=== PATIENT | male | born 1945 | race Caucasian/White ===

== ENCOUNTER 2023-02-06 19:59 | Outpatient (CLI) | payer MEDICARE | END 2023-02-06 23:59 | disposition critical access hospital (66) | LOC: EMS 19:59 | DX: R55 Syncope and collapse (principal) | CPT/HCPCS: A0425; A0429 ==

== ENCOUNTER 2023-02-06 20:34 | Emergency (ER) | payer MEDICARE, OTHER ==
[2023-02-06] MEDS ORDERED: SODIUM CHLORIDE 0.9% 1,000 ML IV STA (20:45)
--- NOTE | 2023-02-06 20:50 | ED Physician Documentation ---
History of Present Illness - Stated complaint Stated Complaint: SYNCOPAL EPISODE - Chief complaint Chief Complaint: General - Additonal information Additional information: 77-year-old male presents to the emergency department for evaluation of a syncopal episode. Reportedly he was at a friend's house had drank a fairly strong amelie as well as partaken in some cannabis cookies that were homemade. While eating dinner he began to feel very lightheaded and as he reported high. He was about to announce that he felt it was not appropriate for him to drive home when he fainted. While on the ground EMS reports that his attempted to do CPR but during this process he was moaning and flailing about. Its not clear whether she ever checked for a pulse. By the time paramedics had arrived he was awake. Initially for EMS he was hypotensive 85/60. He had a blood sugar of about 130 in route to the emergency department he was administered about 500 mL of saline. On arrival here is now normotensive without tachycardia. Past medical history is most significant for hypertension. Patient denies any history of known myocardial infarction or strokes. Patient denies chest pain shortness of air or any symptoms at this time. Meds: Enalapril, losartan, metformin, Flomax Review of Systems Constitutional: reports: Reviewed and negative Cardiac: reports: Reviewed and negative Respiratory: reports: Reviewed and negative GI: reports: Reviewed and negative Skin: reports: Reviewed and negative Musculoskeletal: reports: Reviewed and negative Neurologic: reports: Syncope Psychiatric: reports: Reviewed and negative PD PAST MEDICAL HISTORY - Past Medical History Cardiovascular: Hypertension, High cholesterol, Other Respiratory: None Endocrine/Autoimmune: None GI: GERD : Frequency Psych: Post traumatic stress disorder Musculoskeletal: Other - Past Surgical History Past Surgical History: Yes General: Other HEENT: Tonsil/Adenoidectomy - Present Medications Home Medications: Ambulatory Orders Medication Instructions Recorded Confirmed Ascorbic Acid [Vitamin C] 1 tab PO DAILY 05/14/15 05/14/15 Calcium Carbonate [Calcium] 500 mg PO DAILY 05/14/15 05/14/15 Enalapril Maleate [Vasotec] 10 mg PO QPM 05/14/15 05/14/15 Lovastatin 40 mg PO QPM 05/14/15 05/14/15 Metoprolol Tartrate 50 mg PO QPM 05/14/15 05/14/15 [place]-3/Dha/Epa/Fish Oil [Fish Oil 1 tab PO DAILY 05/14/15 05/14/15 1,000 mg Softgel] Vitamin E 1 tab PO DAILY 05/14/15 05/14/15 - Allergies Allergies/Adverse Reactions: Allergies Allergy/AdvReac Type Severity Reaction Status Date / Time No Known Drug Allergies Allergy Verified 05/14/15 23:49 - Social History Does the pt smoke?: No Smoking Status: Never smoker Does the pt drink ETOH?: No Does the pt have substance abuse?: No - Immunizations Immunizations are current?: Yes - POLST Patient has POLST: No PD ED PE NORMAL - General General: Alert and oriented X 3, No acute distress - HEENT HEENT: Atraumatic, Moist mucous membranes - Neck Neck: Supple, no meningeal sign - Cardiac Cardiac: RRR, No murmur, Strong equal pulses - Respiratory Respiratory: No respiratory distress, Clear bilaterally - Abdomen Abdomen: Normal bowel sounds, Soft - Derm Derm: Warm and dry - Extremities Extremities: No deformity - Neuro Neuro: Alert and oriented X 3, test lead application testing 2-12 intact, No motor deficit, Normal speech Eye Opening: Spontaneous Motor: Obeys Commands Verbal: Oriented GCS Score: 15 Results - Vitals Vitals: Vital Signs - 24 hr 02/06/23 02/06/23 20:39 20:48 Temperature 36.8 C Heart Rate 71 Heart Rate [ 65 Sitting] Heart Rate [ 74 Standing] Heart Rate [ 68 Supine] Respiratory 18 Rate Blood Pressure 129/89 H Blood Pressure 113/65 [Sitting] Blood Pressure 121/75 [Standing] Blood Pressure 110/65 [Supine] O2 Saturation 99 Oxygen O2 Source Room air - EKG (time done) 2034 EKG releavant findings:: EKG personally interpreted by author of this note. Relevant findings are: Rate: Rate (enter#) (54) Rhythm: NSR [place]: Normal Intervals: Normal AL. No: Prolonged QT QRS: Normal Ischemia: Normal ST segments Compare to prior EKG: Unchanged from prior EKG Computer interpretation: Agree with computer - Labs Labs: Laboratory Tests 02/06/23 02/06/23 02/06/23 21:00 21:00 21:00 WBC 8.4 RBC 4.35 L Hgb 13.0 L Hct 40.2 L MCV 92.4 MCH 29.9 MCHC 32.3 RDW 13.3 Plt Count 214 MPV 9.8 Neut # (Auto) 6.2 Lymph # (Auto) 1.4 L [place] # (Auto) 0.6 Eos # (Auto) 0.2 Baso # (Auto) 0.0 Absolute Nucleated RBC 0.00 Nucleated RBC % 0.0 Sodium 142 Potassium 4.0 Chloride 107 Carbon Dioxide 26 Anion Gap 9.0 BUN 28 H Creatinine 1.4 H Estimated GFR (MDRD) 49 L Glucose 115 H Calcium 8.8 Total Bilirubin 0.6 AST 18 ALT 16 Alkaline Phosphatase 41 L Troponin I High Sens 10.5 Total Protein 6.4 L Albumin 3.7 Globulin 2.7 Albumin/Globulin Ratio 1.4 Lipase 32 Ethyl Alcohol < 5.0 - Rads (name of study) cxr Relevant Findings:: Final report received (No acute cardiopulmonary process) PD Medical Decision Making - ED course Complexity details: reviewed results, re-evaluated patient, considered differential, d/w patient ED course: 77-year-old male was brought into the emergency department by EMS after a fainting episode. He had been at dinner with friends and earlier in the day had consumed a amelie which he rarely does. He had also eaten a cannabis infused food of which the strength is not known. While eating dinner he began to feel excessively high and then fainted. His attempted CPR on him though it does not sound as though he ever lost a pulse. During her CPR attempts he was moaning and flailing about. For EMS he was initially hypotensive but after some IV fluids and in route to the emergency department arrived here alert normotensive without tachycardia or fever. His syncope work-up included an EKG which per my interpretation shows no acute ischemic findings. In comparison to the most recent one 8 years ago it is essentially unchanged. We did obtain a chest x-ray which showed no findings of pneumonia, pneumothorax rib fracture pleural effusion or cardiomegaly. I did obtain CBC, electrolytes, troponin and alcohol level. The high-sensitivity troponin is not elevated. He does have mildly elevated BUN and creatinine though in comparison to recent labs is essentially unchanged. As such I suspect he has some mild chronic kidney disease. We did obtain orthostatics here in the emergency department which were also negative. While here in the ER he has received a liter of crystalloid. I discussed with the patient that the most likely etiology of his symptoms today was alcohol use coupled with intoxication due to cannabis. He is in agreement. He has no chest pain or shortness of air. I did discuss with him however the necessity of obtaining an echocardiogram urgently as an outpatient to rule out any structural defects within the heart that it could have contributed to today's symptoms. He will call his PCP to make these arrangements. We also discussed the usual emergent return precautions for worsening symptoms Departure - Departure Disposition: 01 Home, Self Care Clinical Impression: Syncope and collapse Condition: Stable Record reviewed to determine appropriate education?: Yes Comments: Esteban you came to the emergency department tonight because you had a fainting episode while eating dinner. Today you have consumed some cannabis containing food as well as drink a fairly strong amelie. While in the emergency department we did obtain a chest x-ray that was normal. It did not show any findings of pneumothorax, punctured lung, pneumonia or rib fractures. We obtained a CBC that was normal and did not show findings of anemia. Your electrolytes as well as a troponin a marker of whether or not you have had a heart attack were also normal. We did check your vital signs in different positions and did not find any worrisome variation. Important you do discuss this ED visit with your primary care doctor. At a minimum you should be referred for an outpatient echocardiogram to make sure that there is no structural problems with your heart that could have contributed today's symptoms. However common things being common, cannabis and alcohol use most likely contributed to the fainting today. Please return to emergency department if you have any further fainting episodes, develop chest pain or Shortness of air
[2023-02-06 21:05] LABS: BASOPHILS % (AUTO) 0.4 %; EOSINOPHILS # (AUTO) 0.2 10^3/uL (0.0-0.7); EOSINOPHILS % (AUTO) 1.8 %; HCT - HEMATOCRIT 40.2 % (42.0-52.0); LYMPHOCYTES # (AUTO) 1.4 10^3/uL (1.5-3.5); LYMPHOCYTES % (AUTO) 16.5 %; MEAN CORPUSCULAR HEMOGLOBIN 29.9 pg (27.0-31.0); MEAN CORPUSCULAR HGB CONC 32.3 g/dL (32.0-36.0); MEAN CORPUSCULAR VOLUME 92.4 fL (80.0-94.0); MEAN PLATELET VOLUME 9.8 fL (7.4-11.4); MONOCYTES # (AUTO) 0.6 10^3/uL (0.0-1.0); MONOCYTES % (AUTO) 6.9 %; NEUTROPHILS # (AUTO) 6.2 10^3/uL (1.5-6.6); NEUTROPHILS % (AUTO) 74.2 %; PLT - PLATELET COUNT 214 10^3/uL (130-450); RED BLOOD COUNT 4.35 10^6/uL (4.70-6.10); RED CELL DISTRIBUTION WIDTH 13.3 % (12.0-15.0); WHITE BLOOD COUNT 8.4 x10^3/uL (4.8-10.8)
--- NOTE | 2023-02-06 21:07 | XRAY Report ---
PROCEDURE: Chest 1 View X-Ray INDICATIONS: Chest Pain TECHNIQUE: One view of the chest was acquired. COMPARISON: None. FINDINGS: Evaluation slightly limited by patient rotation. Surgical changes and devices: None. Lungs and pleura: No pleural effusions or pneumothorax. Lungs are clear. Mediastinum: Mediastinal contours appear normal. Heart size is normal. Bones and chest wall: No suspicious bony lesions. Overlying soft tissues appear unremarkable. IMPRESSION: No acute cardiopulmonary disease. Reviewed by: Lucas Najera MD on 02/06/2023 9:05 PM PDT Approved by: Lucas Najera MD on 02/06/2023 9:05 PM PDT Station ID: [id number]
[2023-02-06 21:20] LABS: ALBUMIN 3.7 g/dL (3.2-5.5); ALBUMIN/GLOBULIN RATIO 1.4 (1.0-2.2); ALKALINE PHOSPHATASE 41 IU/L (42-121); ALT ALANINE AMINOTRANSFERASE 16 IU/L (10-60); AST ASPARTATE AMINOTRANSFERASE 18 IU/L (10-42); BILIRUBIN,TOTAL 0.6 mg/dL (0.2-1.0); BUN - BLOOD UREA NITROGEN 28 mg/dL (6-20); CALCIUM 8.8 mg/dL (8.5-10.3); CARBON DIOXIDE - CO2 26 mmol/L (21-32); CHLORIDE 107 mmol/L (101-111); CREATININE 1.4 mg/dL (0.6-1.2); ETOH - ETHANOL < 5.0 mg/dL; GFR - MDRD 49 (>89); GLUCOSE 115 mg/dL (70-100); LIPASE 32 U/L (22-51); SODIUM 142 mmol/L (135-145); TOTAL PROTEIN 6.4 g/dL (6.7-8.2)
[2023-02-06 21:39] VITALS: BP 118/73
== END 2023-02-06 21:39 | disposition home or self-care (01) ==
LOC: EDUNIT# → ED 20:34
DX: R55 Syncope and collapse (principal); I10 Essential (primary) hypertension
CPT/HCPCS: 36415; 71045; 80053; 83690; 84484; 85025; 93005; 99283; 99284; G0480; 80320; 83880